=== PATIENT | male | born 1970 | race African-American/Black ===

== ENCOUNTER 2023-08-21 20:51 | Emergency (ER) | payer BC ==
[~2023-08-21] VITALS: Ht 172.7 cm; Wt 53.6 kg
[2023-08-21 21:20] VITALS: BP 119/79; PULSE 98; RESP 16; TEMP 98.2; O2SAT 98
[2023-08-21] MEDS ORDERED: TETANUS, DIPHTHERIA, PERTUSSIS VAC/PF 0.5ML (>10YR OLD) IM ONE (23:30)
[2023-08-21] MEDS ORDERED: ACETAMINOPHEN 500MG TABLET PO ONE (23:30)
== END 2023-08-22 00:15 | disposition left against medical advice (07) ==
LOC: ER 20:51
DX: R51.9 Headache, unspecified (principal); Z53.21 Procedure and treatment not carried out due to patient leaving prior to being seen by health care provider
CPT/HCPCS: 99281; Z7610